=== PATIENT | female | born 1965 | race African-American/Black ===

== ENCOUNTER 2021-09-19 09:30 | Outpatient (RCR) | payer BC, SELFPAY ==
[2021-08-21 08:17] VITALS: BMI 35.6
[2021-09-19 09:48] VITALS: BMI 34.5
[2021-09-19 09:51] VITALS: BMI 34.5
== END 2021-11-04 09:32 | disposition home or self-care (01) ==
LOC: ANHDMC 09:30
DX: Z68.36 Body mass index [BMI] 36.0-36.9, adult (principal); Z71.3 Dietary counseling and surveillance
CPT/HCPCS: 97803

== ENCOUNTER 2021-12-03 07:14 | Outpatient (RCR) | payer BC, SELFPAY | END 2022-02-25 09:46 | disposition home or self-care (01) | LOC: ANHDMC 07:14 | DX: Z68.36 Body mass index [BMI] 36.0-36.9, adult (principal) | CPT/HCPCS: 99199 ==